=== PATIENT | male | born 1955 | race Caucasian/White ===

== ENCOUNTER 2021-04-28 11:36 | Emergency (ER) | payer BC, SELFPAY ==
[2021-04-28 12:00] VITALS: BP 120/80; PULSE 87; RESP 18; TEMP 37.7; O2SAT 92
--- NOTE | 2021-04-28 12:41 | ED.URI ---
HPI - URI/Sore Throat General Chief Complaint: Upper Respiratory Infection Stated Complaint: Flu Time Seen by Provider: 04/28/21 12:42 Source: patient and RN notes reviewed Mode of arrival: ambulatory Limitations: no limitations History of Present Illness HPI Narrative: 66-year-old male with history of A. fib presents with concern for fatigue, mild cough, mild rhinorrhea, general malaise. Reports symptoms started on . He reports mild nausea, decreased appetite. Denies vomiting or diarrhea. Denies body aches, chills, sweats, fever, sore throat, ear pain, headache. Denies [id number] intervention MD elicited complaint: cough Related Data Allergies Allergy/AdvReac Type Severity Reaction Status Date / Time Penicillins Allergy Rash Verified 04/28/21 13:21 Review of Systems Review of Systems: CONSTITUTIONAL: Reports malaise, fatigue. Denies chills, sweats, or fever. EYES: Denies visual changes, redness, or discharge. ENT: Reports rhinorrhea. Denies congestion, sinus pain, otalgia and sore throat. CARDIOVASCULAR: Denies chest pain, palpitations, or edema. RESPIRATORY: Reports cough. Denies dyspnea. GASTROINTESTINAL: Denies abdominal pain, nausea, vomiting, diarrhea SKIN: Denies rash or itching. MUSCULOSKELETAL: Denies myalgia. NEUROLOGIC: Denies headache. All systems reviewed & are unremarkable except as noted in HPI and below PMFSH Comments At time of signature, agree with nursing past medical, surgical, social and family history. There is no relevant family history pertinent to the presenting complaint Exam Narrative: GENERAL: Well-appearing, well-nourished, and in no acute distress. HEAD: Normocephalic EYES: PERRLA, conjunctivae clear ENT: Nares clear, clear discharge. Mucous membranes moist. TM pearly larson with sharp light reflex bilaterally; no tragal tenderness. Oropharynx not erythematous without lesions. Tonsils not enlarged and without exudate, no drooling, no hoarseness, no trismus, uvula midline. NECK: Supple. No lymphadenopathy CHEST: Clear to auscultation, breath sounds equal. No wheezing, rhonchi, rales, or stridor. No respiratory distress, speaks in full sentences. HEART: Regular rate and rhythm. No murmur heard. SKIN: Warm, dry, no rash. NEURO: Alert and oriented x3. PSYCH: Normal mood and affect Course Course Emergency Course: Patient is aware of diagnosis, understands and agrees to treatment plan. Anticipatory guidance given. Patient agrees to follow-up as directed and is aware of reasons to seek care at the emergency department. Portions of this record may have been created with voice recognition software Vital Signs Vital signs: Vital Signs Temperature 99.9 F H 04/28/21 12:00 Pulse Rate 87 04/28/21 12:00 Respiratory Rate 18 04/28/21 12:00 Blood Pressure 120/80 04/28/21 12:00 Pulse Oximetry 92 04/28/21 12:00 Temperature 99.9 F H 04/28/21 12:00 Pulse Rate 87 04/28/21 12:00 Respiratory Rate 18 04/28/21 12:00 Blood Pressure 120/80 04/28/21 12:00 Pulse Oximetry 92 04/28/21 12:00 Reviewed. MDM - URI/Sore Throat MDM Narrative Medical decision making narrative: Differential diagnosis considered: Hauser virus, strep pharyngitis, allergic rhinitis, upper respiratory tract infection, sinusitis, rhinosinusitis, nasopharyngitis. viral pharyngitis, otitis media, otitis externa, pneumonia, bronchitis, viral cough syndrome, viral syndrome, and influenza. Exam findings show no acute concerns or changes; patient is non-toxic appearing and is in no distress. Patient is appropriate for outpatient treatment and follow-up. Lab Data Labs: Influenza A Screen Negative Reference Range: Negative Influenza B Screen Negative Reference Range: Negative ECG Data EKG #1: ECG completion date: 04/28/21 ECG completion time: 13:01 Prior E
--- NOTE | 2021-04-28 12:52 | ECG_ITS ---
Measurements Intervals [place] Rate: 76 P: 29 TX: 201 QRS: -17 QRSD: 104 T: 45 QT: 396 QTc: 445 Interpretive Statements SINUS RHYTHM DELAYED PRECORDIAL R/S TRANSITION BASELINE ARTIFACT- I, III, AVR, AVL BORDERLINE ECG Electronically Signed On 04-28-2021 13:28:52 [employer] MACHINE OPERATOR by Wagner Kohler D.O.
[2021-04-30 02:32] LABS: SARS-CoV-2 RNA PCR Positive
== END 2021-04-28 13:27 | disposition home or self-care (01) ==
PROVIDERS: Emergency Provider Nurse Practitioner
DX: U07.1 COVID-19 (principal); I48.91 Unspecified atrial fibrillation; E78.00 Pure hypercholesterolemia, unspecified; I10 Essential (primary) hypertension
CPT/HCPCS: 87426; 87804; 93005; 99213; C9803; G0463; U0003; U0005

== ENCOUNTER 2021-09-28 17:14 | Emergency (ER) | payer BC, SELFPAY ==
[2021-09-28 17:24] VITALS: BP 141/90; PULSE 70; RESP 16; TEMP 37; O2SAT 97
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
== END 2021-09-28 17:50 | disposition home or self-care (01) ==
PROVIDERS: Emergency Provider Nurse Practitioner Family
DX: T24.332A Burn of third degree of left lower leg, initial encounter (principal); T31.0 Burns involving less than 10% of body surface; X19.XXXA Contact with other heat and hot substances, initial encounter
CPT/HCPCS: 87070; 87205; 99213; G0463

== ENCOUNTER 2023-10-19 19:13 | Emergency (ER) | payer OTHER, SELFPAY ==
--- NOTE | ~2023-10-19 | XR_ITS ---
EXAMINATION:[id number] DATE: 10/19/2023 20:09 INDICATION: Right-sided neck pain TECHNIQUE: AP, lateral, lateral swimmers and odontoid views of the cervical spine are provided. COMPARISON: None FINDINGS: Straightening of the normal cervical lordosis. There is anterior and posterior fusion at C2-C3. Sugge stion of additional fusion at least across the margins of the C4-C7 vertebral bodies. Severe disc hei ght loss with prominent anterior endplate osteophytes at C6-C7. Moderate disc height loss at C3-C4 an d C7-T1. Multilevel moderate to severe cervical facet osteoarthritis most prominent bilaterally at C3 -C4 and C4-C5. Odontoid is intact. Moderate atlantoaxial osteoarthritis. Prevertebral soft tissues ar e normal. IMPRESSION: 1. Severe cervical spondylosis with suggestion of ankylosis at several levels. Reviewed, dictated and finalized at location A.
--- NOTE | ~2023-10-19 | XR_ITS ---
EXAMINATION: XR shoulder RT min 2V DATE: 10/19/2023 20:09 INDICATION: Right shoulder pain TECHNIQUE: AP internally and externally rotated, AP oblique externally rotated and transscapular Y vi ews of the right shoulder were obtained. COMPARISON: None FINDINGS: Normal alignment. No fracture.Mild right glenohumeral osteoarthritis. Moderate chronic clavicular os teoarthritis with small inferiorly directed osteophytes. There is a large portion of the right lung a re clear. Soft tissues are unremarkable. IMPRESSION: Mild right glenohumeral and moderate acromioclavicular osteoarthritis. No acute osseous abnormality. Reviewed, dictated and finalized at location A.
[2023-10-19 19:24] VITALS: BP 125/67; PULSE 78; RESP 18; TEMP 36.6; O2SAT 95
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
== END 2023-10-19 20:27 | disposition home or self-care (01) ==
PROVIDERS: Emergency Provider Nurse Practitioner
DX: S16.1XXA Strain of muscle, fascia and tendon at neck level, initial encounter (principal); S46.911A Strain of unspecified muscle, fascia and tendon at shoulder and upper arm level, right arm, initial encounter; V89.2XXA Person injured in unspecified motor-vehicle accident, traffic, initial encounter; M19.90 Unspecified osteoarthritis, unspecified site; E11.9 Type 2 diabetes mellitus without complications; I10 Essential (primary) hypertension
CPT/HCPCS: 72040; 73030; 99214; G0463